=== PATIENT | male | born 1965 | race Caucasian/White ===

== ENCOUNTER 2019-03-02 06:46 | Inpatient (IN) ==
--- NOTE | 2019-02-23 14:16 | EKG Report ---
Test Performed on : 02/23/2019 1:52:01 PM Test Reason : pat Blood Pressure : / mmHG Vent. Rate : 082 BPM Atrial Rate : 082 BPM P-R Int : 138 ms QRS Dur : 078 ms QT Int : 342 ms P-R-T Axes : 079 073 071 degrees QTc Int : 399 ms Sinus rhythm. with marked sinus arrhythmia. Otherwise normal ECG When compared with ECG of 05-APR-2015 20:25, No significant change was found Confirmed by Jimbo POWER, Jaden Linares ([id number]) on 02/24/2019 6:06:19 AM
[2019-02-23 14:21] LABS: WBC 8.62 X1000 (4.8-10.8)
[2019-02-23 14:22] LABS: HEMATOCRIT 47.6 % (42.0-52.0); HEMOGLOBIN 15.6 g/dL (14.0-18.0); MCH 30.4 PG (27-31); MCHC 32.8 g/dL (33-37); MCV 92.6 FL (81-99); RBC 5.14 XMIL (4.7-6.1); RDW 14.1 % (11.5-14.5)
[2019-02-23 14:24] LABS: INR 2.8; PROTIME 30.3 Seconds (11.0-16.0)
[2019-02-23 14:50] LABS: AGAP 12; BUN 7 mg/dL (8-22); CALCIUM 8.7 mg/dL (8.8-10.2); CHLORIDE 102 mmol/L (98-107); COSMO 277; CREATININE 1.1 mg/dL (0.7-1.2); ESTIMATED GFR > 60; GLUCOSE 93 mg/dL (70-104); POTASSIUM 3.7 mmol/L (3.5-5.1); SODIUM 140 mmol/L (136-145); TCO2 26 mmol/L (25-35)
[2019-03-02] MEDS ORDERED: LR 1,000 ML ONE (07:10)
[2019-03-02] MEDS ORDERED: VANCOMYCIN 1 GM/NS 1 GM/250 ML IVPB ONE (07:10)
[2019-03-02] MEDS ORDERED: DIPRIVAN 1% ONE (07:58)
[2019-03-02] MEDS ORDERED: FENTANYL ONE (07:58)
[2019-03-02] MEDS ORDERED: VERSED ONE (07:58)
[2019-03-02] MEDS ORDERED: KEFZOL ONE (08:44)
[2019-03-02] MEDS ORDERED: HEPARIN ONE (08:44)
[2019-03-02] MEDS ORDERED: SENSORCAINE 0.25%/EPI 1:200,000 ONE (08:44)
[2019-03-02] MEDS ORDERED: NS 1,000 ML ONE ×2 (08:45→10:52)
[2019-03-02] MEDS ORDERED: OFIRMEV 1000 MG/ISOTONIC SOLN 1,000 MG/100 ML BOTTLE ONE (09:02)
[2019-03-02] MEDS ORDERED: ZEMURON ONE (09:08)
[2019-03-02] MEDS ORDERED: HEPARIN (DOSE) ONE (09:15)
[2019-03-02 10:42] LABS: URINE SOURCE CATH
[2019-03-02 10:45] LABS: BILIRUBIN URINE NEGATIVE (NEGATIVE); BLOOD URINE NEGATIVE (NEGATIVE); COLOR STRAW; GLUCOSE URINE NEGATIVE (NEGATIVE); KETONE URINE NEGATIVE (NEGATIVE); LEUKOCYTES URINE NEGATIVE (NEGATIVE); NITRITE URINE NEGATIVE (NEGATIVE); PROTEIN URINE NEGATIVE (NEGATIVE); SP GRAVITY URINE 1.005; TURBIDITY URINE CLEAR (CLEAR); UR EPITHELIAL CELLS <10 /HPF (<10); URINE BACTERIA NEGATIVE /HPF; URINE RBC <10 /HPF (<10); URINE WBC <10 /HPF (<10); UROBILINOGEN URINE NORMAL (NORMAL)
[2019-03-02] MEDS ORDERED: ZOFRAN IV PRN (11:18)
--- NOTE | 2019-03-02 11:27 | OPERATIVE NOTE ---
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 SURGEON: Arturo Tay MD. ICE CREAM FREEZER: Oumar Cheng RN. PREOPERATIVE DIAGNOSIS: Left femoral false aneurysm. POSTOPERATIVE DIAGNOSIS: Left femoral false aneurysm. DESCRIPTION OF PROCEDURE: Satisfactory general endotracheal anesthesia was achieved. The left groin was prepped and draped in a sterile fashion. An Ioban drape was used. Prophylactic vancomycin was given. I made a vertical incision in the left groin and dissected down to the aneurysm. We dissected first cephalad went through the inguinal ligament and the external oblique aponeurosis and exposed the graft as it was coming toward the groin. We were able to expose it and dissected both sides in order to be able to clamp the graft. We then dissected inferiorly, identified the superficial femoral artery surrounded with a vessel loop. We then gave the patient 7000 units of heparin. After it had circulated for 5 minutes, we then clamped the graft and we held occlusion of the superficial femoral artery. We then opened the aneurysm. There was clot noted within the aneurysm, we removed it. We could see where the aneurysm had formed posteriorly. We identified the distal artery and really could not identify a profunda so it may have been coming out distal but really did not identify a profunda. We were able to occlude flow distally with the profunda clamp. We resected some of the aneurysm wall. We chose an 8 mm Hemashield collagen-impregnated Dacron graft that was straight. We then did an end-to-end anastomosis between the new Dacron graft and the old left limb of aortofemoral graft using a 4-0 Prolene stitch. We then tested the proximal anastomosis and hemostasis was satisfactory. We then cut the graft to match the distal artery, cut it in an oblique type way and then used a 5-0 Prolene stitch to construct it. Just prior to finishing, we back-bled the distal artery and then we flushed the graft, no clots were seen. We then finished the anastomosis and flow was established. No additional stitches were required. This was a 9 cm segment of graft that was placed. We then closed the aneurysm wall over the new graft using a 4-0 and 5-0 Prolene stitch. We closed the inguinal ligament and external oblique aponeurosis with a 0 Polysorb [id number] stitches. We closed the first layer of subcutaneous tissue with a running 2-0 Polysorb to cover the newly placed graft. We then placed 3-0 Polysorb in the subcutaneous tissue and then closed the skin with miky. Marcaine 0.25 with epinephrine was used as local anesthesia. A sterile dressing was applied. He tolerated it well. Estimated blood loss was 450 mL. He was sent to the recovery room in stable condition. cc: Arturo Tay MD
[2019-03-02] MEDS: NORCO-10 PO PRN ×2 (12:15→17:07)
[2019-03-02] MEDS: DILAUDID IV PRN (13:34)
[2019-03-02] MEDS: NEURONTIN PO SCH ×2 (13:53→20:48)
[2019-03-02] MEDS: VANCOMYCIN 1 GM/NS 1 GM/250 ML IVPB IV SCH ×2 (13:53→23:10)
[2019-03-02] MEDS: NS 1,000 ML IV SCH ×2 (13:53→23:16)
--- NOTE | 2019-03-02 20:18 | GENERAL SURGERY PROGRESS NOTE ---
DATE: 03/02/2019 SUBJECTIVE: Mr. Suarez is doing generally well. It is 3:30 in the afternoon. He has had some blood leakage from his wound. It has just minor. I removed his dressing, cleaned his wound and recovered it with sterile gauze and an ABD. I think this should resolve itself. His hemodynamics were good. His blood pressure is 156/79. He is awake alert and oriented. cc: Arturo Tay MD
[2019-03-02] MEDS: PERIDEX MT SCH (20:47)
[2019-03-02] MEDS: LIPITOR PO SCH (20:48)
[2019-03-03] MEDS: NORCO-10 PO PRN ×3 (03:37→18:07)
[2019-03-03 06:39] LABS: BASO# 0.03 X1000 (0.0-0.2); BASO% 0.2 % (0.0-0.8); EOS# 0.03 X1000 (0.0-0.7); EOS% 0.2 % (0.0-10.0); HEMATOCRIT 40.8 % (42.0-52.0); HEMOGLOBIN 13.1 g/dL (14.0-18.0); LYMPH# 1.33 X1000 (1.2-3.4); LYMPH% 10.8 % (20.5-51.1); MCH 30.7 PG (27-31); MCHC 32.1 g/dL (33-37); MCV 95.6 FL (81-99); MONO# 1.01 X1000 (0.11-0.59); MONO% 8.2 % (1.7-9.3); MPV 10.1 FL (7.4-10.4); NEUT# 9.97 X1000 (1.4-6.5); NEUT% 80.6 % (42.2-75.2); PLT 134 X1000 (130-400); RBC 4.27 XMIL (4.7-6.1); RDW 13.9 % (11.5-14.5); WBC 12.37 X1000 (4.8-10.8)
[2019-03-03 07:04] LABS: AGAP 7; BUN 8 mg/dL (8-22); CALCIUM 7.9 mg/dL (8.8-10.2); CHLORIDE 105 mmol/L (98-107); COSMO 275; CREATININE 0.8 mg/dL (0.7-1.2); ESTIMATED GFR > 60; GLUCOSE 114 mg/dL (70-104); POTASSIUM 4.2 mmol/L (3.5-5.1); SODIUM 138 mmol/L (136-145); TCO2 26 mmol/L (25-35)
[2019-03-03] MEDS: NEURONTIN PO SCH ×3 (09:20→18:07)
[2019-03-03] MEDS: PERIDEX MT SCH ×2 (09:20→20:21)
--- NOTE | 2019-03-03 11:03 | GENERAL SURGERY PROGRESS NOTE ---
DATE: 03/03/2019 He is postop day 1 after repair of his left femoral fossa aneurysm. He is afebrile. Heart rate is 67. Blood pressure is 139/83. Bandage is dry. He has palpable pedal pulses. His hemoglobin is 13. White count is 12,400. Chemistry is okay. The plan is to restart his Coumadin today and we will remove his Allan catheter. cc: Arturo Tay MD
[2019-03-03] MEDS: DILAUDID IV PRN (11:17)
[2019-03-03 11:22] LABS: INR 1.08; PROTIME 14.2 Seconds (11.0-16.0)
[2019-03-03] MEDS: VANCOMYCIN 1 GM/NS 1 GM/250 ML IVPB IV SCH (12:19)
[2019-03-03] MEDS: NS 1,000 ML IV SCH (12:21)
[2019-03-03] MEDS: LIPITOR PO SCH (20:21)
[2019-03-03] MEDS ORDERED: COUMADIN PO SCH (21:00)
[2019-03-04] MEDS: VANCOMYCIN 1 GM/NS 1 GM/250 ML IVPB IV SCH (00:11)
[2019-03-04] MEDS: NS 1,000 ML IV SCH (04:05)
[2019-03-04 07:34] LABS: INR 1.22; PROTIME 15.6 Seconds (11.0-16.0)
[2019-03-04 07:49] VITALS: BP 125/74
[2019-03-04] MEDS: NORCO-10 PO PRN (07:55)
[2019-03-04] MEDS: NEURONTIN PO SCH (09:11)
[2019-03-04] MEDS: PERIDEX MT SCH (09:14)
--- NOTE | 2019-03-04 15:05 | GENERAL SURGERY PROGRESS NOTE ---
DATE: 03/04/2019 Mr. Suarez is sitting up, doing fine. He said his legs feel good. He has urinated satisfactorily. His wound looks good. We treated it with Betadine, and recovered it today. I will allow him to go home. We restarted his Coumadin. He knows to alternate 7.5 and 5 at home. He will return to see me in the office on 03/13. We discussed wound care and activity. cc: Arturo Tay MD
[2019-03-04] MEDS ORDERED: COUMADIN PO SCH (21:00)
--- NOTE | 2019-03-13 22:53 | DISCHARGE SUMMARY ---
ADMISSION DATE: 03/02/2019 DISCHARGE DATE: 03/04/2019 ADMISSION DIAGNOSIS: Pseudoaneurysm left groin. PRIMARY PROCEDURE: Repair of the left femoral pseudoaneurysm. This is a 53-year-old who had a previous aortobifemoral bypass. 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 He is here for repair. Following his admission on the he was taken to the operating room and underwent the above-noted repair. Postoperatively he did generally well. We restarted his Coumadin on 03/03 alternating 7.5 with 5. By 03/04 his bandage was dry, hemodynamics were satisfactory and was felt he could be discharged home. Will recheck his pro time as an outpatient to be sure his back anticoagulated. We will recheck his wound on revisit in 10 days, remove his miky at that time. cc: Arturo Tay MD
== END 2019-03-04 11:37 | disposition home or self-care (01) | DRG 254 ==
LOC: PAT 06:46 → 4N 06:46 → OPS 06:46 → OBSVTOIN 11:00
PROVIDERS: ADMIT Surgery; ATTEND Surgery